=== PATIENT | female | born 1980 | race African-American/Black ===

== ENCOUNTER 2019-05-17 12:28 | Day surgery (SDC) | payer OTHER ==
[~2019-05-17] VITALS: Ht 162.6 cm; Wt 137.4 kg
[~2019-05-17 12:28] MED LIST: EXCEDRIN CAPLE1 EACH PO; TYLENOL EXTRA500 MG PO
[2019-05-17 13:27] VITALS: BP 163/78
[2019-05-17] MEDS ORDERED: PERCOCET 7.5-31 EAC1 PO (15:27)
[2019-05-17] MEDS ORDERED: ASPIRIN EC325 MG PO (15:28)
[2019-05-17 16:12] VITALS: BP 163/78
--- NOTE | 2019-05-21 09:35 | O ---
[facility] [place] [address] OPERATIVE REPORT Name: ZOHRA CORBETT Room #: DEP [facility]#: [id number] Admission: 05/17/19 Attend Phys: Bruce Fournier MD Discharge: 05/17/19 Date of : 82 Report #: [id number] THIS REPORT FOR: cc: [facility] - No family physician/PCP FAM - No family physician/PCP Bruce Fournier MD ~ CC: [facility] physician/PCP Bruce Fournier DATE OF SERVICE: 05/17/2019 PREOPERATIVE DIAGNOSIS: Left subtalar and talonavicular joint osteoarthritis. POSTOPERATIVE DIAGNOSIS: Left subtalar and talonavicular joint osteoarthritis. PROCEDURE: Left foot subtalar and talonavicular joint arthrodesis. SURGEON: Dr. Bruce Fournier. CARGO VESSEL STEWARDESS: Madelaine Man. ANESTHESIA: General. ESTIMATED BLOOD LOSS: Minimal. DRAINS: No drains. TOURNIQUET TIME: One hour. DESCRIPTION OF PROCEDURE: The patient was brought to the operating room where she was placed under general anesthesia. Once under adequate general anesthesia, her left lower extremity was prepped and draped in sterile manner. The extremity was elevated, exsanguinated, tourniquet placed 300 mmHg. A lateral incision over the sinus tarsi was then made to dissect down through soft tissue to the subtalar joint. Any intervening soft tissue was removed utilizing a large rongeur and the joint was then prepared utilizing osteotomes, curettes and the bur to get bleeding subchondral bone. A dorsal incision 4 cm in length was made as well over the talonavicular joint. Dissection was carried down to the joint dorsally which was then completely exposed including removing some dorsal osteophytes with a rongeur. Once exposed, the talonavicular joint was prepared in similar fashion as the subtalar joint with curettes, osteotomes and a bur to get bleeding subchondral bone. The joints were then irrigated copiously. Signafuse graft was then placed into each of the joints and fixation across the joints was achieved with two 7.3 mm cannulated screws placed under fluoroscopic guidance across the subtalar joint from dorsal to plantar and three 4.5 mm cannulated screws placed under fluoroscopic guidance as well. [address] [address] OPERATIVE REPORT Name: ZOHRA CORBETT MARCELO Room #: DEP [facility].#: [id number] Admission: 05/17/19 Attend Phys: Bruce Fournier MD Discharge: 05/17/19 Date of : 82 Report #: [id number] fixation and alignment was achieved as verified under fluoroscopy. The wound was irrigated copiously and closed with 2-0 Vicryl in the deep subcutaneous tissues and zain used for the skin. The wounds were dressed with Xeroform, 4 x 4s and sterile soft compressive dressing with a short leg cast was placed. Tourniquet was let down at 1 hour. Toes were pink and warm with good capillary refill. There were no complications from the procedure. The patient tolerated the procedure well and went to recovery room without incident. <ELECTRONICALLY SIGNED> By: Bruce Fournier MD 05/21/19 [id number] Bruce Fournier MD /nt
== END 2019-05-17 18:30 | disposition home or self-care (01) ==
LOC: OR 12:28 → TBA 12:29 → OR 16:29
DX: M19.072 Primary osteoarthritis, left ankle and foot (principal); K21.9 Gastro-esophageal reflux disease without esophagitis; G43.909 Migraine, unspecified, not intractable, without status migrainosus; Z98.890 Other specified postprocedural states; Z79.899 Other long term (current) drug therapy; Z88.8 Allergy status to other drugs, medicaments and biological substances; Z79.82 Long term (current) use of aspirin
CPT/HCPCS: 50010; 50101; 50386; 50679; 50951; 51412; 53341; 53400; 56524; 57091; 57181; 57213; 62110; 62900; 70005